=== PATIENT | female | born 1970 | race Caucasian/White ===

== ENCOUNTER 2019-05-03 02:56 | Emergency (ER) | payer BC ==
[2019-05-03 03:01] VITALS: BP 122/78; PULSE 80; RESP 20; TEMP 97.9
[2019-05-03] MEDS ORDERED: PROPARACAINE 0.5% OPHTH DROPS 15 ML BTL RIGHT EYE STA (03:03)
[2019-05-03] MEDS ORDERED: TOBRAMYCIN 0.3% OPHTH OINT 3.5 GM TUBE RIGHT EYE STA (03:24)
[2019-05-03] MEDS ORDERED: DIPH,PERTUS(ACELL)TETVAC-LF 0.5 ML VIAL IM ONE (03:24)
--- NOTE | 2019-05-03 03:30 | ED ---
Eye Problem HPI - General Chief complaint: Eye Problems Stated complaint: FB in eye Time Seen by Provider: 05/03/19 03:03 Source: patient Mode of arrival: ambulatory Limitations: no limitations - History of Present Illness Initial comments: 48-year-old female patient presents to the emergency department today for evaluation of foreign body sensation to the right eye. Patient states earlier in the evening around 10 PM she felt something go into the eye. Patient states she did flush this with saline however did not seem to help. Patient states symptoms persisted so she presented here for further evaluation. She denies any blurred or double vision with this. Denies any drainage from the eye. Denies any significant pain. States discomfort is a scratching sensation. Patient is unsure when her last tetanus vaccine was given. She denies any other injuries or concerns. - Related Data Home Medications Medication Instructions Recorded Confirmed No Known Home Medications 06/22/14 01/04/15 Allergies Allergy/AdvReac Type Severity Reaction Status Date / Time No Known Allergies Allergy Verified 05/03/19 03:01 Review of Systems ROS Statement: Those systems with pertinent positive or pertinent negative responses have been documented in the HPI. ROS Other: All systems not noted in ROS Statement are negative. Past Medical History Past Medical History: No Reported History History of Any Multi-Drug Resistant Organisms: None Reported Past Surgical History: No Surgical Hx Reported Past Psychological History: No Psychological Hx Reported Smoking Status: Never smoker Past Alcohol Use History: None Reported Past Drug Use History: None Reported General Exam Limitations: no limitations General appearance: alert, in no apparent distress, other (Physical well- developed, well-nourished adult female patient in no acute distress. Vital signs upon presentation are temperature 97.9F, pulse 80, respirations 20, blood pressure 122/78, pulse ox 99% on room air.) Eye exam: Present: PERRL, EOMI, other (Fluorescein stain with Wood's lamp examination was performed. Foreign body noted to the cornea at around 10:00.). Absent: normal appearance, scleral icterus, conjunctival injection, periorbital swelling ENT exam: Present: normal exam, normal oropharynx, mucous membranes moist Respiratory exam: Present: normal lung sounds bilaterally. Absent: respiratory distress, wheezes, rales, rhonchi, stridor Cardiovascular Exam: Present: regular rate, normal rhythm, normal heart sounds. Absent: systolic murmur, diastolic murmur, rubs, gallop, clicks Neurological exam: Present: alert, oriented X3, CN II-XII intact Psychiatric exam: Present: normal affect, normal mood Skin exam: Present: warm, dry, intact, normal color. Absent: rash Course Vital Signs 05/03/19 02:58 Temperature 97.9 F Pulse Rate 80 Respiratory 20 Rate Blood Pressure 122/78 O2 Sat by Pulse 99 Oximetry Procedures - Procedures Initial comment: Fluorescein stain with Wood's lamp examination was performed to the right eye. This did reveal a foreign body to the right cornea around 10:00. I was anesthetized using proparacaine. Initial attempts to remove foreign body with moistened cotton swab was unsuccessful. Foreign body was successfully removed using Robertson brush. Patient tolerated the procedure well with no complications. Medical Decision Making - Medical Decision Making 48 year-old female patient presented to the emergency department today for evaluation of foreign body to the right eye. Physical examination did reveal a foreign body over the cornea at around 10:00. This was removed utilizing Arsen brush. Patient will be started on tobramycin ointment. She is instructed to follow-up with ophthalmology symptoms don't improve over the next 1-2 days. Return parameters were discussed in detail. She verbalizes understanding and agrees with this plan. Disposition Clinical Impression: Foreign body of right eye Disposition: HOME SELF-CARE Condition: Good Instructions (If sedation given, give patient instructions): Tobramycin (Into the eye), Eye Foreign Body (ED) Additional Instructions: Use ointment, one centimeter ribbon to the right lower eyelid 4 times daily while awake. Follow-up with sandwich board carrier on Sunday if you still have symptoms. Follow-up with your primary care physician for recheck in 1-2 days. Return to the emergency department immediately for any new, worsening, or concerning symptoms. Is patient prescribed a controlled substance at d/c from ED?: No Referrals: None,Stated [Primary Care Provider] - 1-2 days Time of Disposition: 03:30
== END 2019-05-03 03:45 | disposition home or self-care (01) ==
LOC: EC 02:56
DX: T15.01XA Foreign body in cornea, right eye, initial encounter (principal); Z23 Encounter for immunization
CPT/HCPCS: 65220; 90471; 90715; 99283

== ENCOUNTER 2020-01-31 17:17 | Emergency (ER) | payer BC ==
[2020-01-31 17:25] VITALS: RESP 18; TEMP 97.7
[2020-01-31] MEDS ORDERED: PROPARACAINE 0.5% OPHTH DROPS 15 ML BTL LEFT EYE STA (17:46)
[2020-01-31] MEDS ORDERED: FLUORESCEIN STRIPS 1 MG STRIP LEFT EYE ONE (17:54)
--- NOTE | 2020-01-31 18:12 | ED ---
Eye Problem HPI - General Source: patient Mode of arrival: ambulatory Limitations: no limitations <Lluvia Santana - Last Filed: 01/31/20 19:36> <Nae Fernández - Last Filed: 02/08/20 23:09> - General Chief complaint: Eye Problems Stated complaint: eye problems Time Seen by Provider: 01/31/20 17:27 - History of Present Illness Initial comments: 49-year-old female presenting today for chief complaint of left eye foreign body. Patient states that she woke up from a nap and had irritation of the left eye. She states her cat was sleeping on her and had his possible over her eye. She states she is not sure something fell off his pole into her eye. 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 Patient states that she was working yesterday denies any specific injury denies grinding metals. Patient denies any welding denies any redness of the eye. Patient denies drainage. Patient denies any headache nausea or vomiting. Patient is no additional complaints patient states when she continued to have the sensation of something was in her eye she presented to the ER for evaluation. (Lluvia Santana) - Related Data Previous Rx's Medication Instructions Recorded Cephalexin [Keflex] 500 mg PO Q8HR #21 cap 09/27/19 Artificial Tears-Hypromellose 1 drops LEFT EYE TID 3 Days #3 ml 01/31/20 [Artificial Tear Drops] Erythromycin Ophth Oint [Romycin 1 applic LEFT EYE QID 3 Days #1 01/31/20 Ophth Oint] tube Allergies Allergy/AdvReac Type Severity Reaction Status Date / Time No Known Allergies Allergy Verified 01/31/20 17:25 Review of Systems ROS Other: All systems not noted in ROS Statement are negative. <Lluvia Santana - Last Filed: 01/31/20 19:36> ROS Other: All systems not noted in ROS Statement are negative. <aNe Fernández - Last Filed: 02/08/20 23:09> ROS Statement: Those systems with pertinent positive or pertinent negative responses have been documented in the HPI. Past Medical History Past Medical History: No Reported History History of Any Multi-Drug Resistant Organisms: None Reported Past Surgical History: No Surgical Hx Reported Past Psychological History: No Psychological Hx Reported Smoking Status: Never smoker Past Alcohol Use History: None Reported Past Drug Use History: None Reported <Lluvia Santana - Last Filed: 01/31/20 19:36> General Exam Limitations: no limitations <Lluvia Santana - Last Filed: 01/31/20 19:36> - General Exam Comments Initial Comments: General: The patient is awake and alert, in no distress, and does not appear acutely ill. Eye: +3 mm pupils are equal, round and reactive to light, extra-ocular movements are intact. No nystagmus. There is normal conjunctiva bilaterally. No signs of icterus. Upon fluorescein examination there is a very small pinpoint area of uptake in the center of the cornea. No rust ring, appears white. Negative Hudson sign. No chemosis. No lid foreign body. Ears, nose, mouth and throat: There are moist mucous membranes and no oral lesions. Neck: The neck is supple, there is no tenderness or JVD. Musculoskeletal: Normal ROM, no tenderness. Strength 5/5. Sensation intact. Pulses equal bilaterally 2+. Neurological: A&O x 3. CN II-XII intact grossly, There are no obvious motor or sensory deficits. Coordination appears grossly intact. Speech is normal. Skin: Skin is warm and dry and no rashes or lesions are noted. Psychiatric: Cooperative, appropriate mood & affect, normal judgment. (Lluvia Santana) Course Vital Signs 01/31/20 01/31/20 17:22 18:22 Temperature 97.7 F Pulse Rate 68 79 Respiratory 18 18 Rate Blood Pressure 121/81 119/73 O2 Sat by Pulse 99 99 Oximetry Medical Decision Making <Lluvia Santana - Last Filed: 01/31/20 19:36> <Nae Fernández - Last Filed: 02/08/20 23:09> - Medical Decision Making 49-year-old female presenting today for chief complaint of sensation of foreign body in the left eye. Works with fiberglass. Small white foreign body center of the cornea. Removed very easily with an 18-gauge needle. (-) siedels sign prior to and after removal. No chemosis or injection at this time. Patient initiated on antibiotics. Tdap up to date in last 5 years. She is to follow-up with ophthalmology return parameters were discussed she discharged appearing well discussed case attending provider Dr. Fernández over the phone. (Lluvia Santana) I was available for consultation in the emergency department. The history and physical exam were done by the midlevel provider. I was consulted for this patients care. I reviewed the case with the midlevel provider and based on their presentation of the patient, I agree with the assessment, medical decision making and plan of care as documented. Chart was dictated using [employer] dictation software. Attempts were made to correct any dictation errors however some typographical errors may persist. Patient was seen during a national state of emergency due to the Covid-19 pandemic. (Nae Fernández) Disposition Is patient prescribed a controlled substance at d/c from ED?: No Time of Disposition: 18:11 <Lluvia Santana - Last Filed: 01/31/20 19:36> <Nae Fernández - Last Filed: 02/08/20 23:09> Clinical Impression: Corneal foreign body, Irritation of left eye Disposition: HOME SELF-CARE Condition: Good Instructions (If sedation given, give patient instructions): Eye Foreign Body (ED) Additional Instructions: Please use medication as discussed. Please follow-up with ophthalmology in the next 24-48 hours. Please return to emergency room if the symptoms increase or worsen or for any other concerns. Prescriptions: Artificial Tears-Hypromellose [Artificial Tear Drops] 1 drops LEFT EYE TID 3 Days #3 ml Erythromycin Ophth Oint [Romycin Ophth Oint] 1 applic LEFT EYE QID 3 Days #1 tube Referrals: Kizzy Resendez MD [Primary Care Provider] - 1-2 days Arpit Manuel MD [STAFF PHYSICIAN] - 1-2 days
[2020-01-31 18:26] VITALS: BP 119/73; PULSE 79
== END 2020-01-31 18:26 | disposition home or self-care (01) ==
LOC: EC 17:17
DX: T15.02XA Foreign body in cornea, left eye, initial encounter (principal); W55.09XA Other contact with cat, initial encounter
CPT/HCPCS: 65220; 99283

== ENCOUNTER 2021-01-25 15:49 | Emergency (ER) | payer BC ==
[2021-01-25 15:57] VITALS: BP 128/89; PULSE 107; RESP 16; TEMP 98
[2021-01-25] MEDS ORDERED: FLUTICASONE 50MCG/SPRAY NASAL 16GM EA NOSTRIL PRN (16:23)
[2021-01-25] MEDS ORDERED: diphenhydrAMINE 50 MG CAP PO STA (16:23)
--- NOTE | 2021-01-25 16:26 | ED ---
Recheck HPI - General Chief Complaint: Recheck/Abnormal Lab/Rx Stated Complaint: Loss of taste/smell Time Seen by Provider: 01/25/21 15:58 Source: patient, RN notes reviewed Mode of arrival: ambulatory Limitations: no limitations - History of Present Illness Initial Comments: Patient is a 50-year-old female that presents to emergency room complaining of ALLERGIES due to her work environment. She notes that she took 2 months of work didn't have any issues with sinus congestion blocks nose. 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 She denied taking an ALLERGY medication at home. She notes she talked returning wrap said the only evaluation get off that job as if she has a work note. Patient was in emotional distress as she is having a hard time with her ALLERGIES and working at the same time. She did note that her work tried shifting people around to give her a break from her specific station but the other people left when they were told to do her job. She did report decreased smell secondary to an nasal congestion and stuffiness. Patient denied any chest pain shortness of breath headache nausea vomiting diarrhea constipation fever fatigue chills. - Related Data Previous Rx's Medication Instructions Recorded Cephalexin [Keflex] 500 mg PO Q8HR #21 cap 09/27/19 Artificial Tears-Hypromellose 1 drops LEFT EYE TID 3 Days #3 ml 01/31/20 [Artificial Tear Drops] Erythromycin Ophth Oint [Romycin 1 applic LEFT EYE QID 3 Days #1 01/31/20 Ophth Oint] tube Famotidine [Pepcid] 20 mg PO DAILY 30 Days #30 tablet 01/25/21 Fluticasone Nasal [place] [Flonase 2 spr EA NOSTRIL DAILY #1 bottle 01/25/21 Nasal [place]] Loratadine [Claritin] 10 mg PO DAILY 30 Days #30 tab 01/25/21 Allergies Allergy/AdvReac Type Severity Reaction Status Date / Time No Known Allergies Allergy Verified 01/25/21 15:57 Review of Systems ROS Statement: Those systems with pertinent positive or pertinent negative responses have been documented in the HPI. ROS Other: All systems not noted in ROS Statement are negative. Past Medical History Past Medical History: No Reported History History of Any Multi-Drug Resistant Organisms: None Reported Past Surgical History: No Surgical Hx Reported Past Psychological History: No Psychological Hx Reported Smoking Status: Never smoker Past Alcohol Use History: None Reported Past Drug Use History: None Reported General Exam Limitations: no limitations General appearance: alert, in no apparent distress Head exam: Present: atraumatic, normocephalic, normal inspection Eye exam: Present: normal appearance, PERRL, EOMI. Absent: scleral icterus, conjunctival injection, periorbital swelling ENT exam: Present: normal exam, mucous membranes moist, TM's normal bilaterally Neck exam: Present: normal inspection Respiratory exam: Present: normal lung sounds bilaterally. Absent: respiratory distress, wheezes, rales, rhonchi, stridor Cardiovascular Exam: Present: regular rate, normal rhythm, normal heart sounds. Absent: systolic murmur, diastolic murmur, rubs, gallop, clicks GI/Abdominal exam: Present: soft, normal bowel sounds. Absent: distended, tenderness, guarding, rebound, rigid Extremities exam: Present: normal inspection, full ROM, normal capillary refill. Absent: tenderness, pedal edema, joint swelling, calf tenderness Neurological exam: Present: alert, oriented X3, CN II-XII intact Psychiatric exam: Present: normal affect, normal mood Skin exam: Present: warm, dry, intact, normal color. Absent: rash Course Vital Signs 01/25/21 15:51 Temperature 98 F Pulse Rate 107 H Respiratory 16 Rate Blood Pressure 128/89 O2 Sat by Pulse 99 Oximetry Medical Decision Making - Medical Decision Making 50-year-old female complaining of ALLERGIES that are worsened by her work environment. 50 mg of Benadryl, 2 sprays of Flonase in each nostril ordered. Covid swab ordered. Case discussed with Dr. Soriano patient can discharge home in stable condition. We will call if Covid test result is positive. Disposition Clinical Impression: Allergic rhinitis Disposition: HOME SELF-CARE Condition: Stable Instructions (If sedation given, give patient instructions): Allergies (ED) Additional Instructions: Please return to the Emergency Department if symptoms worsen or any other concerns. Follow-up with primary care in the next 1-2 days. Take all medications as prescribed to help with ALLERGY symptoms. Prescriptions: Loratadine [Claritin] 10 mg PO DAILY 30 Days #30 tab Fluticasone Nasal [place] [Flonase Nasal [place]] 2 spr EA NOSTRIL DAILY #1 bottle Famotidine [Pepcid] 20 mg PO DAILY 30 Days #30 tablet Is patient prescribed a controlled substance at d/c from ED?: No Referrals: Kizzy Resendez MD [Primary Care Provider] - 1-2 days Time of Disposition: 16:34
== END 2021-01-25 16:57 | disposition home or self-care (01) ==
LOC: EC 15:49
DX: J30.9 Allergic rhinitis, unspecified (principal); Z20.822 Contact with and (suspected) exposure to COVID-19
CPT/HCPCS: 87635; 99283

== ENCOUNTER 2022-03-31 06:48 | Emergency (ER) | payer BC ==
[2022-03-31 06:53] VITALS: TEMP 98.1
[2022-03-31] MEDS ORDERED: GLUCAGON 1 MG/ML VIAL IVP STA ×2 (06:55→07:49)
[2022-03-31] MEDS ORDERED: METOCLOPRAMIDE 5 MG/ML 2 ML VIAL IVP STA (06:55)
--- NOTE | 2022-03-31 07:06 | ED ---
ENT HPI - General Chief complaint: ENT Stated complaint: Food stuck in throat Time Seen by Provider: 03/31/22 06:55 Source: patient, RN notes reviewed Mode of arrival: ambulatory Limitations: no limitations - History of Present Illness Initial comments: 51-year-old female presents emergency Department with chief complaint of food stuck in her throat. Patient states that she is eating some chicken felt that he got stuck. Patient states she's not been able swallowing since midnight. She states she is spitting up her own saliva. She states his happened 10 years ago in which she had an EGD supposed to follow-up. Patient states she did not follow up. Patient denies any difficulty breathing. Patient denies any known drug ALLERGIES patient offers no other complaints. - Related Data Previous Rx's Medication Instructions Recorded Cephalexin [Keflex] 500 mg PO Q8HR #21 cap 09/27/19 Artificial Tears-Hypromellose 1 drops LEFT EYE TID 3 Days #3 ml 01/31/20 [Artificial Tear Drops] Erythromycin Ophth Oint [Romycin 1 applic LEFT EYE QID 3 Days #1 01/31/20 Ophth Oint] tube Famotidine [Pepcid] 20 mg PO DAILY 30 Days #30 tablet 01/25/21 Fluticasone Nasal [place] [Flonase 2 spr EA NOSTRIL DAILY #1 bottle 01/25/21 Nasal [place]] Loratadine [Claritin] 10 mg PO DAILY 30 Days #30 tab 01/25/21 Allergies Allergy/AdvReac Type Severity Reaction Status Date / Time No Known Allergies Allergy Verified 03/31/22 06:53 Review of Systems ROS Statement: Those systems with pertinent positive or pertinent negative responses have been documented in the HPI. ROS Other: All systems not noted in ROS Statement are negative. Past Medical History Past Medical History: No Reported History History of Any Multi-Drug Resistant Organisms: None Reported Past Surgical History: No Surgical Hx Reported Past Psychological History: No Psychological Hx Reported Smoking Status: Never smoker Past Alcohol Use History: None Reported Past Drug Use History: None Reported General Exam Limitations: no limitations General appearance: alert, in no apparent distress Head exam: Present: atraumatic, normocephalic, normal inspection Eye exam: Present: normal appearance, PERRL, EOMI. Absent: scleral icterus, conjunctival injection, periorbital swelling ENT exam: Present: normal exam, normal oropharynx, mucous membranes moist Neck exam: Present: normal inspection, full ROM. Absent: tenderness, meningismus, lymphadenopathy Respiratory exam: Present: normal lung sounds bilaterally. Absent: respiratory distress, wheezes, rales, rhonchi, stridor Cardiovascular Exam: Present: regular rate, normal rhythm, normal heart sounds. Absent: systolic murmur, diastolic murmur, rubs, gallop, clicks Course Vital Signs 03/31/22 06:50 Temperature 98.1 F Pulse Rate 78 Respiratory 18 Rate Blood Pressure 128/86 O2 Sat by Pulse 100 Oximetry Medical Decision Making - Medical Decision Making Patient presented for impacted food bolus patient did receive medications was able to swallow after medications with no difficulty. Patient is advised that she needs to follow up for EGD. Disposition Clinical Impression: Food impaction of esophagus Disposition: HOME SELF-CARE Condition: Stable Instructions (If sedation given, give patient instructions): Food Impaction (ED) Additional Instructions: Please return to the Emergency Department if symptoms worsen or any other concerns. Is patient prescribed a controlled substance at d/c from ED?: No Referrals: Kizzy Resendez MD [Primary Care Provider] - 1-2 days Mireille Mo MD [STAFF PHYSICIAN] - 1-2 days Time of Disposition: 08:03
[2022-03-31 08:09] VITALS: BP 124/78; PULSE 80; RESP 20
== END 2022-03-31 08:08 | disposition home or self-care (01) ==
LOC: EC 06:48
DX: T18.128A Food in esophagus causing other injury, initial encounter (principal)
CPT/HCPCS: 99282; 96374; 96375; J1610; J2765; J3360

== ENCOUNTER → 2022-06-16 | Outpatient (CLI) | payer OTHER ==
--- NOTE | 2022-06-16 11:56 | XR ---
Right hand and right wrist HISTORY: Contusion, trauma and pain 3 views of the right hand, 4 views of the right wrist Bone mineralization, joint spaces and alignment are maintained. Soft tissue swelling noted at the aicha sum of the hand. IMPRESSION: No evident fracture or dislocation of the right hand or wrist
== END | disposition home or self-care (01) ==
LOC: RADXRMAIN 11:27
PROVIDERS: ATTEND Emergency Medicine
DX: M25.531 Pain in right wrist (principal)

== ENCOUNTER 2023-01-10 07:51 | Emergency (ER) | payer BC, OTHER ==
[2023-01-10 08:09] VITALS: RESP 18
[2023-01-10] MEDS ORDERED: GLUCAGON 1 MG/ML VIAL IVP STA ×2 (08:32→09:50)
[2023-01-10] MEDS ORDERED: NITROGLYCERIN SL TABS 0.4 MG TAB SUBLINGUAL STA (08:33)
[2023-01-10] MEDS ORDERED: SODIUM CHLORIDE 0.9% 1,000 ML IV ONE (08:33)
--- NOTE | 2023-01-10 10:23 | ED ---
General Adult HPI - General Chief complaint: ENT Stated complaint: Throat issues Time Seen by Provider: 01/10/23 08:05 Source: patient Mode of arrival: ambulatory Limitations: no limitations - History of Present Illness Initial comments: 52-year-old female no reported past medical history who presents to the emergency room in saying that she has food stuck in her throat. States that around 6 AM this morning she was eating a chip dip that had taken in it. Feels like a piece of leal and is caught in the back of her throat. States that she drank pop and a significant amount of water at home and continues to have the sensation that it is still there. She is able to swallow her spit however cannot pass any fluids that she attempts to drink. Reports that she has had this several times before in the past. Most of the time she is able to get it to clear on her own. She did have to come into the emergency department 2 months ago for this complaint however the food was able to be passed after she got glucagon and Valium. She denies any difficulty breathing. No chest pain. No previous history of EGD. No other alleviating, precipitating or modifying factors - Related Data Home Medications Medication Instructions Recorded Confirmed No Known Home Medications 01/10/23 01/10/23 Allergies Allergy/AdvReac Type Severity Reaction Status Date / Time No Known Allergies Allergy Verified 01/10/23 08:57 Review of Systems ROS Statement: Those systems with pertinent positive or pertinent negative responses have been documented in the HPI. ROS Other: All systems not noted in ROS Statement are negative. Past Medical History Past Medical History: No Reported History History of Any Multi-Drug Resistant Organisms: None Reported Past Surgical History: No Surgical Hx Reported Past Psychological History: No Psychological Hx Reported Smoking Status: Never smoker Past Alcohol Use History: None Reported Past Drug Use History: None Reported General Exam Limitations: no limitations General appearance: alert, anxious Head exam: Present: atraumatic, normocephalic, normal inspection Eye exam: Present: normal appearance, PERRL, EOMI. Absent: scleral icterus, conjunctival injection, periorbital swelling ENT exam: Present: normal exam, mucous membranes moist Neck exam: Present: normal inspection. Absent: tenderness, meningismus, lymphadenopathy Respiratory exam: Present: normal lung sounds bilaterally. Absent: respiratory distress, wheezes, rales, rhonchi, stridor Cardiovascular Exam: Present: regular rate, normal rhythm, normal heart sounds. Absent: systolic murmur, diastolic murmur, rubs, gallop, clicks GI/Abdominal exam: Present: soft, normal bowel sounds. Absent: distended, tenderness, guarding, rebound, rigid Extremities exam: Present: normal inspection, full ROM, normal capillary refill. Absent: tenderness, pedal edema, joint swelling, calf tenderness Back exam: Present: normal inspection Neurological exam: Present: alert, oriented X3, CN II-XII intact Psychiatric exam: Present: normal affect, normal mood Skin exam: Present: warm, dry, intact, normal color. Absent: rash Course Vital Signs 01/10/23 01/10/23 01/10/23 08:05 08:18 08:28 Temperature 97.2 F L Pulse Rate 81 88 Respiratory 18 18 Rate Blood Pressure 120/68 137/91 O2 Sat by Pulse 99 97 99 Oximetry 01/10/23 09:23 Temperature Pulse Rate 76 Respiratory Rate Blood Pressure 129/84 O2 Sat by Pulse 99 Oximetry - Reevaluation(s) Reevaluation #1: 01/10/23 10:21 Patient states that she she still can't swallow. Will recommend transfer as we do not have GI coverage Medical Decision Making - Medical Decision Making Was pt. sent in by a medical professional or institution (, PA, GROCERY SUPERVISOR, urgent care, hospital, or fpc...) When possible be specific @ -No Did you speak to anyone other than the patient for history (EMS, parent, family, police, friend...)? What history was obtained from this source @ -No Did you review nursing and triage notes (agree or disagree)? Why? @ -I reviewed and agree with nursing and triage notes Were old charts reviewed (outside hosp., previous admission, EMS record, old EKG, old radiological studies, urgent care reports/EKG's, fpc records)? Report findings @ -I reviewed the patient's chart from 2 months ago when she had a food bolus and was treated in our emergency department Differential Diagnosis (chest pain, altered mental status, abdominal pain women, abdominal pain men, vaginal bleeding, weakness, fever, dyspnea, syncope, headache, dizziness, GI bleed, back pain, seizure, CVA, palpatations, mental health, musculoskeletal)? @ -Esophageal web, esophageal stricture, esophageal cancer, GERD EKG interpreted by me (3pts min.). @ -EKG not performed X-rays interpreted by me (1pt min.). @ -Xray not performed CT interpreted by me (1pt min.). @ -CT not performed U/S interpreted by me (1pt. min.). @ -Ultrasound performed What testing was considered but not performed or refused? (CT, X-rays, U/S, labs)? Why? @ -None What meds were considered but not given or refused? Why? @ -None Did you discuss the management of the patient with other professionals (professionals i.e. DrErinn, PA, GROCERY SUPERVISOR, lab, RT, psych nurse, social worker health services, assistant to the vice president, teacher, first officer, leather case finisher)? Give summary @ -The case was discussed with the medical or medical transfer line. Cutting physician is Dr. Fragoso and Dr. Fontenot Was smoking cessation discussed for >3mins.? @ -No Was critical care preformed (if so, how long)? @ -No Were there social determinants of health that impacted care today? How? (Homelessness, low income, unemployed, alcoholism, drug addiction, transportation, low edu. Level, literacy, decrease access to med. care, senior living, rehab)? @ -Patient does not have transportation and therefore has been delayed and following up with GI Was there de-escalation of care discussed even if they declined (Discuss DNR or withdrawal of care, Hospice)? DNR status @ -No What co-morbidities impacted this encounter? (DM, HTN, Smoking, COPD, CAD, Cancer, CVA, ARF, Chemo, Hep., AIDS, mental health diagnosis, sleep apnea, morbid obesity)? @ -None Was patient admitted / discharged? Hospital course, mention meds given and route, prescriptions, significant lab abnormalities, going to OR and other pertinent info. @ -Patient was transferred. Upon arrival patient was placed into trauma 1. IV is established. She was given a dose of glucagon and a sublingual nitro. Reevaluated and continues to be unable to swallow. She is then given 5 mg of Valium and attempts to drink burners. Patient begins vomiting. She is then given a second dose of glucagon with continued symptoms. Discussed that we do not have GI cinnamon grinder. States that the patient should be transferred for which she was agreeable. Called the [facility] [place] transfer center and Dr. Fragoso and Dr. Fontenot accept the patient. She will go by EMS. Patient transferred in stable condition Undiagnosed new problem with uncertain prognosis? @ -yes Drug Therapy requiring intensive monitoring for toxicity (Heparin, Nitro, Insulin, Cardizem)? @ -No Were any procedures done? @ -No Diagnosis/symptom? @ -Acute esophageal food impaction Acute, or Chronic, or Acute on Chronic? @ -Acute Uncomplicated (without systemic symptoms) or Complicated (systemic symptoms)? @ -Complicated Side effects of treatment? @ -Vomiting Exacerbation, Progression, or Severe Exacerbation? @ -No Poses a threat to life or bodily function? How? (Chest pain, [place], [place], pneumonia, PE, COPD, DKA, ARF, appy, cholecystitis, CVA, Diverticulitis, Homicidal, Suicidal, threat to staff... and all critical care pts) @ -yes. Patient could suffer from esophageal necrosis with infection Disposition Clinical Impression: Food impaction of esophagus Disposition: OTHER INSTITUTION NOT DEFINED Condition: Fair Is patient prescribed a controlled substance at d/c from ED?: No Referrals: Kizzy Resendez MD [Primary Care Provider] - 1-2 days Time of Disposition: 10:22 - Out of Hospital Transfer - Req. Specs Out of Hospital Transfer - Requested Specifics: Other Emergency Center ([facility])
[2023-01-10 11:22] VITALS: BP 91/60; PULSE 99; TEMP 97.3
== END 2023-01-10 11:20 | disposition other institution (70) ==
LOC: EC 07:51
DX: T18.128A Food in esophagus causing other injury, initial encounter (principal)
CPT/HCPCS: 99284; J1610; J3360

== ENCOUNTER 2023-06-15 15:20 | Emergency (ER) | payer BC ==
[2023-06-15 15:44] VITALS: RESP 18
--- NOTE | 2023-06-15 18:20 | ED ---
General Adult HPI - General Chief complaint: Dental/Oral Stated complaint: tooth abscess Time Seen by Provider: 06/15/23 17:18 Source: patient, RN notes reviewed Mode of arrival: ambulatory Limitations: no limitations - History of Present Illness Initial comments: 52-year-old female presents to the emergency department with chief complaint of dental abscess that has been draining on and off for multiple months. She states that she was started on Augmentin and has taken 2 doses thus far. She states that she has been more tired than usual and she admits to sneezing, sore throat. She denies fever, chills. - Related Data Home Medications Medication Instructions Recorded Confirmed No Known Home Medications 01/10/23 01/10/23 Allergies Allergy/AdvReac Type Severity Reaction Status Date / Time No Known Allergies Allergy Verified 01/10/23 08:57 Review of Systems ROS Statement: Those systems with pertinent positive or pertinent negative responses have been documented in the HPI. ROS Other: All systems not noted in ROS Statement are negative. Past Medical History Past Medical History: No Reported History History of Any Multi-Drug Resistant Organisms: None Reported Past Surgical History: No Surgical Hx Reported Past Psychological History: No Psychological Hx Reported Smoking Status: Never smoker Past Alcohol Use History: None Reported Past Drug Use History: None Reported General Exam Limitations: no limitations General appearance: alert, in no apparent distress Head exam: Present: atraumatic, normocephalic, normal inspection Eye exam: Present: normal appearance, PERRL, EOMI. Absent: scleral icterus, conjunctival injection, periorbital swelling ENT exam: Present: mucous membranes moist, other (small left lower dentition abscess). Absent: normal oropharynx (Erythematous oropharynx) Neck exam: Present: normal inspection. Absent: tenderness, meningismus, lymphadenopathy Respiratory exam: Present: normal lung sounds bilaterally. Absent: respiratory distress, wheezes, rales, rhonchi, stridor Cardiovascular Exam: Present: regular rate, normal rhythm, normal heart sounds. Absent: systolic murmur, diastolic murmur, rubs, gallop, clicks Course Vital Signs 06/15/23 06/15/23 15:30 18:56 Temperature 98.5 F 98.1 F Pulse Rate 58 L 84 Respiratory 18 18 Rate Blood Pressure 116/80 100/70 O2 Sat by Pulse 98 99 Oximetry Medical Decision Making - Medical Decision Making Was pt. sent in by a medical professional or institution (MODESTA Barcenas, FIBERGLASS DOWEL DRAWING OPERATOR, urgent c are, hospital, or senior living...) When possible be specific @ -No Did you speak to anyone other than the patient for history (EMS, parent, family, police, friend...)? What history was obtained from this source @ -No Did you review nursing and triage notes (agree or disagree)? Why? @ -I reviewed and agree with nursing and triage notes Were old charts reviewed (outside hosp., previous admission, EMS record, old EKG, old radiological studies, urgent care reports/EKG's, senior living records)? Report findings @ -No old charts were reviewed Differential Diagnosis (chest pain, altered mental status, abdominal pain women, abdominal pain men, vaginal bleeding, weakness, fever, dyspnea, syncope, headache, dizziness, GI bleed, back pain, seizure, CVA, palpatations, mental health, musculoskeletal)? @ -Dental infection, dental abscess, Covid, influenza, RSV, this list is not all-inclusive EKG interpreted by me (3pts min.). @ -None X-rays interpreted by me (1pt min.). @ -None done CT interpreted by me (1pt min.). @ -None done U/S interpreted by me (1pt. min.). @ -None done What testing was considered but not performed or refused? (CT, X-rays, U/S, labs)? Why? @ -None What meds were considered but not given or refused? Why? @ -None Did you discuss the management of the patient with other professionals (professionals i.e. MODESTA Barcenas, FIBERGLASS DOWEL DRAWING OPERATOR, lab, RT, psych nurse, social problems specialist, pin cleaner, teacher, title officer, immigration case manager)? Give summary @ -No Was smoking cessation discussed for >3mins.? @ -No Was critical care preformed (if so, how long)? @ -No Were there social determinants of health that impacted care today? How? (Homelessness, low income, unemployed, alcoholism, drug addiction, transportation, low edu. Level, literacy, decrease access to med. care, intermediate, rehab)? @ -No Was there de-escalation of care discussed even if they declined (Discuss DNR or withdrawal of care, Hospice)? DNR status @ -No What co-morbidities impacted this encounter? (DM, HTN, Smoking, COPD, CAD, Canc er, CVA, ARF, Chemo, Hep., AIDS, mental health diagnosis, sleep apnea, morbid obesity)? @ -None Was patient admitted / discharged? Hospital course, mention meds given and route, prescriptions, significant lab abnormalities, going to OR and other pertinent info. @ -Discharged. Patient presented to emergency department with chief complaint of generalized fatigue, sneezing, sore throat 4 days. She is being treated for a dental abscess with Augmentin. She states that she has taken 2 doses of the medication thus far. The patient was tested for Covid which was positive. Influenza, RSV negative. Discussed findings of the test was patient and symptomatic treatment. Patient is agreeable and understanding. She is about time of discharge. Case discussed with Dr. Morris. Undiagnosed new problem with uncertain prognosis? @ -No Drug Therapy requiring intensive monitoring for toxicity (Heparin, Nitro, Insulin, Cardizem)? @ -No Were any procedures done? @ -No Diagnosis/symptom? @ -Covid Acute, or Chronic, or Acute on Chronic? @ -acute Uncomplicated (without systemic symptoms) or Complicated (systemic symptoms)? @ -uncomplicated Side effects of treatment? @ -No Exacerbation, Progression, or Severe Exacerbation? @ -No Poses a threat to life or bodily function? How? (Chest pain, [place], [place], pneumonia, PE, COPD, DKA, ARF, appy, cholecystitis, CVA, Diverticulitis, Homicidal, Suicidal, threat to staff... and all critical care pts) @ -No - Lab Data Lab Results 06/15/23 Range/Units 17:57 Influenza Type A (PCR) Not Detected (Not Detectd) Influenza Type B (PCR) Not Detected (Not Detectd) RSV (PCR) Not Detected (Not Detectd) SARS-CoV-2 (PCR) Detected A (Not Detectd) Disposition Clinical Impression: COVID Disposition: HOME SELF-CARE Condition: Stable Instructions (If sedation given, give patient instructions): Toothache (ED), COVID-19 (Coronavirus Disease 2019) (ED) Additional Instructions: Please follow up with your primary care provider. Return to the emergency department for new or worsening symptoms. Is patient prescribed a controlled substance at d/c from ED?: No Referrals: Kizzy Resendez MD [Primary Care Provider] - 1-2 days
[2023-06-15 19:13] VITALS: BP 100/70; PULSE 84; TEMP 98.1
== END 2023-06-15 19:53 | disposition home or self-care (01) ==
LOC: EC 15:20
DX: U07.1 COVID-19 (principal); Z20.822 Contact with and (suspected) exposure to COVID-19
CPT/HCPCS: 87636; 99283